=== PATIENT | female | born 1950 | race Caucasian/White ===

== ENCOUNTER 2022-10-18 14:30 | Emergency (ER) | payer MEDICARE, BC ==
[~2022-10-18] VITALS: Ht 170.2 cm; Wt 61.2 kg
[2022-10-18 15:01] VITALS: BP 116/59
== END 2022-10-18 15:45 | disposition home or self-care (01) ==
LOC: ED 14:30
PROC: 09C3XZZ Extirpation of Matter from Right External Auditory Canal, External Approach (ICD-10-PCS; principal; 2022-10-18)
DX: T16.1XXA Foreign body in right ear, initial encounter (principal); I10 Essential (primary) hypertension; X58.XXXA Exposure to other specified factors, initial encounter